=== PATIENT | female | born 1980 | race African-American/Black ===

== ENCOUNTER 2019-04-05 07:50 | Inpatient (IN) | payer OTHER ==
[2019-04-05 08:48] VITALS: BMI 14.6
[2019-04-05] MEDS ORDERED: CITRIC ACID/SODIUM CITRATE 30 ML UNIT-DOSE CUP PO ONE (10:11)
--- NOTE | 2019-04-05 10:15 | HP ---
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: Alzheimer's, CVA, Dementia, Migraine, Multiple Sclerosis, Peripheral Neuropathy, Parkinson's, Seizure, Syncope, TIA, Vertigo, Other Cardiovascular: No: AFIB, Aneurysm, Aortic Insufficiency, Aortic Stenosis, CAD, CHF, Deep Vein Thrombosis, HTN, Hyperlipdemia, IN, Mitral Insufficiency, Mitral Stenosis, Murmur, Pulmonary Hypertension, Other Pulmonary: No: Asthma, Bronchitis, Cancer, COPD, O2 Dependent, Pneumonia, Previously Intubated, Pulmonary Embolus, Pulmonary Fibrosis, Sleep Apnea, Other Gastrointestinal: No: Ascites, Cancer, Constipation, Crohn's Disease, Diverticulitis, Diverticulosis, Esophageal Varices, Gastritis, GERD, GI Bleed, Hemorrhoids, Hiatal Hernia, Inflamatory Bowel Disease, Irritable Bowel Disease, Pancreatitis, Peptic Ulcer Disease, Ulcerative Colitis, Other Hepatobiliary: No: Cirrhosis, Cholelithiasis, Cholecystitis, Choledocholithiasis , Hepatitis A, Hepatitis B, Hepatitis C, Other Renal/: No: Renal Failure, Renal Inusuff, BPH, Cancer, Hematuria, Hemodialysis , Neurogenic Bladder, Renal Calculi, UTI, Other Reproductive: No: Ectopic , Endometriosis, Fibroids, PID, Polycystic Ovary Syndrome, Postmenopausal, Other ...: 3 ...Para: 2 ...Term: 2 ...: 0 ...Spon : 0 ...Induced : 0 ...Multiple Gestation: 0 ...LMP: 06/14/18 ... Weeks Gestation by Dates: 39 ...EDC by Dates: 04/11/19 ...EDC by Sono: 04/05/19 Heme/Onc: No: Anemia, B12 Deficiency, Bleeding Disorder, Cancer, Current Chemotherapy, Current Radiation Therapy, Hemochromatosis, Hypercoaguable State, Myeloproliferative Synd, Sickle Cell Disease, Sickle Cell Trait, Thrombocytopenia, Other Infectious Disease: No: AIDS, C-Diff, Herpes Zoster, HIV, MRSA, STD's, Tuberculosis, VREF, Other Psych: No: Addictions, Anxiety, Bipolar, Depression, Panic, Psychosis, Schizophrenia, Other Musculoskeletal: No: Bursitis, Chronic low back pain, Hemiparesis, Hemiplegia, Osteoarthritis, Paraplegia, Other Rheumatology: No: Fibromyalgia, Gout, Lupus, Rheumatoid Arthritis, Sarcoidosis, Vasculitis, Other ENT: No: Allergic Rhinitis, Sinusitis, Other Endocrine: No: [place]'s Disease, [place]'s Disease, Diabetes Insipidus, Diabetes Mellitus, Hyperparathyroidism, Hyperthyroidism, Hypothyroidism, Osteopenia, SIADH, Other Dermatology: No: Basal Cell, Cellulitis, Eczema, Melanoma, Psoriasis, Squamous Cell, Other - Past Surgical History Past Surgical History: No: None, AAA Repair, AICD, Amputation, Appendectomy, Arthrosocopy, AV Fistula/Graft, Bariatric Surgery, Breast Biopsy, Bypass, CABG, Carotid Endarterectomy, Cataract Removal, Cholecystectomy, Colectomy, Colonoscopy, Colostomy, Craniotomy, , Cystectomy, Hernia Repair, Hysterectomy, Ileal Conduit, Ileosotomy, Joint Replacement, Kidney Transplant, Laminectomy, Liver Transplant, Mastectomy, Nephrectomy, Oopherectomy, Orchiectomy, Permanent Pacemaker, Prostatectomy, Splenectomy, Stent, Thoracotomy , TURP, Tonsillectomy, Tubal Ligation, Upper Endoscopy, Valve Replacement, Vasectomy, Vein Stripping/Ligation Hx Myomectomy: No Hx Transabdominal Cerclage: No - Advance Directives Advance Directives: Yes: Living Will - Smoking History Smoking history: Never smoked Have you smoked in the past 12 months: No - Alcohol/Substance Use Hx Alcohol Use: No History of Substance Use: reports: None - Social History Usual Living Arrangement: Yes: With Spouse Do you think of yourself as: Straight/Heterosexual ADL: Independent History of Recent Travel: No Home Medications - Allergies Allergies/Adverse Reactions: Allergies Allergy/AdvReac Type Severity Reaction Status Date / Time No Known Allergies Allergy Verified 04/05/19 08:31 - Home Medications Home Medications: Ambulatory Orders Albuterol Sulfate [Proventil HFA Inhaler -] 1 - 2 inh PO PRN 04/05/19 Prenat 115/Iron Fum/Folic/Dss [ 19 Tablet] 1 each PO DAILY 04/05/19 Family Medical History Family History: Denies Review of Systems - Review of Systems Constitutional: reports: No Symptoms Eyes: reports: No Symptoms HENT: reports: No Symptoms Neck: reports: No Symptoms Cardiovascular: reports: No Symptoms Respiratory: reports: No Symptoms Gastrointestinal: reports: No Symptoms Genitourinary: reports: No Symptoms Breasts: reports: No Symptoms Reported Musculoskeletal: reports: No Symptoms Integumentary: reports: No Symptoms Neurological: reports: No Symptoms Endocrine: reports: No Symptoms Hematology/Lymphatic: reports: No Symptoms Psychiatric: reports: No Symptoms Physical Exam - Maternity Vital Signs: Vital Signs Temperature 98.7 F 04/05/19 08:34 Pulse Rate 103 H 04/05/19 08:34 Respiratory Rate 20 04/05/19 08:34 Blood Pressure 109/61 04/05/19 08:34 O2 Sat by Pulse Oximetry (%) Constitutional: Yes: Well Nourished, No Distress, Calm Eyes: Yes: WNL, Conjunctiva Clear, EOM Intact HENT: Yes: WNL, Atraumatic, Normocephalic Neck: Yes: WNL, Supple, Trachea Midline Cardiovascular: Yes: WNL, Regular Rate and Rhythm Lungs: Clear to auscultation Breast(s): Yes: WNL - Abdominal Exam/OB Fundal Height: 40 Number of Fetuses: Single Presentation: Vertex Contractions: Yes Regularity: Irregular Intensity: Mild Monitor Mode: External Heart Rate Location: [facility] Category: I Accelerations: Uniform Decelerations: None - Vaginal Exam/OB Vaginal Bleediing: No Speculum Exam: No Amniotic Membrane Status: Intact Presentation: Vertex/Position Station: -3 - Physical Exam Musculoskeletal: Yes: WNL Extremities: Yes: WNL Edema: Yes Edema: LUE: 1+, RUE: 1+, LLE: 1+, RLE: 1+ Integumentary: Yes: WNL Deep Tendon Reflex Grade: Normal +2 ...Motor Strength: WNL Psychiatric: Yes: WNL, Alert, Oriented Assessment/Plan for repeat lt c s
[2019-04-05] MEDS ORDERED: morphine SULFATE/PF 0.5 MG/ML (2cc Syringe - QUVA) ONE (10:20)
[2019-04-05] MEDS ORDERED: ELECTROLYTE-148 SOLN 500 ML IV ONE (10:20)
[2019-04-05] MEDS ORDERED: ePHEDrine SULFATE 50 MG/1 ML AMPULE ONE (10:21)
[2019-04-05] MEDS ORDERED: ELECTROLYTE-148 SOLN 1,000 ML IV SCH (10:50)
[2019-04-05] MEDS ORDERED: OXYTOCIN 20 UNITS in 0.9% NS 20 UNIT/1,000 ML INFUS.BAG IV ONE (11:54)
[2019-04-05] MEDS ORDERED: METHYLERGONOVINE MALEATE 0.2 MG/1 ML AMP IM PRN (12:21)
[2019-04-05] MEDS ORDERED: SENNOSIDES/DOCUSATE COMBO (SENNA PLUS) TABLET (UD) PO PRN (12:21)
[2019-04-05] MEDS ORDERED: oxyCODONE HCL 5 MG TABLET PO PRN (12:21)
[2019-04-05] MEDS ORDERED: ONDANSETRON 4 MG/2 ML VIAL IVPUSH PRN (12:25)
[2019-04-05] MEDS ORDERED: morphine SULFATE/PF 0.5 MG/ML (2cc Syringe - QUVA) SPIN ONE (12:25)
--- NOTE | 2019-04-05 12:28 | OP ---
Operative Note - Note: Operative Date: 04/05/19 Pre-Operative Diagnosis: repeat lt c s Operation: repeat lt c s Findings: polyhydramnious , macrosomia Post-Operative Diagnosis: Same as Pre-op Surgeon: Dudley Echevarria Lie Detector Operator: Иван Saunders Anesthesia: Spinal Estimated Blood Loss (mls): 1,200 Operative Report Dictated: Yes
[2019-04-05] MEDS: IBUPROFEN 800 MG/8 ML IJ IVPB PRN (22:02)
[2019-04-06] MEDS: OXYTOCIN 20 UNITS in 0.9% NS 20 UNIT/1,000 ML INFUS.BAG IV SCH ×2 (02:04→02:06)
[2019-04-06] MEDS: IBUPROFEN 800 MG/8 ML IJ IVPB PRN ×2 (06:12→13:39)
--- NOTE | 2019-04-06 07:03 | OP ---
DATE OF OPERATION: 04/05/2019 PREOPERATIVE DIAGNOSIS: Repeat low transverse section. POSTOPERATIVE DIAGNOSIS: Repeat low transverse section. PROCEDURE PERFORMED: Repeat low transverse section. SURGEON: Dudley Echevarria MD CREAM HAULER: TD Penn ANESTHESIA: Spinal. ANESTHESIOLOGIST: Malaika Rojas M.D. INDICATIONS: A 39-year-old female patient, 39 weeks' , is not diabetic. She is morbidly obese, with BMI of 44.2, and was taken to the OR repeat low transverse section. The patient had a previous low transverse section. Currently 39 weeks . DESCRIPTION OF PROCEDURE: The patient was placed on the operating table in the supine position after spinal anesthesia was obtained. The patient's abdomen and pelvis were prepped and draped in the usual sterile manner. Following the same Pfannenstiel incision, an incision was made through the skin and subcutaneous tissue until the fascia was nicked in the midline. The fascial incision was extended bilaterally. The intraperitoneal cavity was entered. No bladder flap was created. The low transverse segment of the uterus was entered. The baby was delivered from LOP position. There was no cord around the neck. The baby is macrosomic and difficult to remove outside the uterine cavity, but we got it out. The uterus was a little bit lethargic, so Pitocin was given and Methergine was given for atonic uterus, but the fundus of the uterus was firm after the Methergine was given. The uterus was closed in a single layer, good hemostasis, no complications. Both ovaries, fallopian tubes and uterus within normal limits. Peritoneum was closed. Fascia was closed. Skin was closed with a subcuticular suture. Both gutters were clean. Draining clear urine. Blood loss about 1200 mL. Transferred to the recovery room in stable condition. MD STEPHANIE CARVAJAL/[id number]
[2019-04-06 09:00] LABS: BASO % 0.7 % (0-2.0); EOS % 1.4 % (0-4.5); HEMATOCRIT 30.9 % (32.4-45.2); HEMOGLOBIN 10.5 GM/dL (10.7-15.3); LYMPH % 19.2 % (8-40); MEAN CELL VOLUME 88.4 fl (80-96); MEAN PLT VOLUME 9.6 fl (7.5-11.1); MONO % 8.9 % (3.8-10.2); NEUT % 69.8 % (42.8-82.8); PLATELET COUNT 158 K/MM3 (134-434); RDW 14.2 % (11.6-15.6); WHITE BLOOD COUNT 10.6 K/mm3 (4.0-10.0)
[2019-04-06] MEDS: ENOXAPARIN NA (PORCINE) 40 MG/0.4 ML DISP.SYRIN SQ SCH (09:00)
--- NOTE | 2019-04-06 10:01 | PN ---
Progress Note (short form) - Note Progress Note: Post op day#1.S/P C Section under spinal anesthesia with duramorph uneventful.Patient stable and has little pain for which she is on medication.No any anesthesia related problem.Patient DC from the anesthesia care.
[2019-04-06] MEDS ORDERED: BISACODYL 10 MG SUPP.RECT RC PRN (12:22)
--- NOTE | 2019-04-06 17:16 | PN ---
Post Progress Note Post Day: 1 Type of Delivery: Repeat C/S Vital Signs: Vital Signs Temperature 98.5 F 04/06/19 10:00 Pulse Rate 95 H 04/06/19 10:00 Respiratory Rate 20 04/06/19 15:00 Blood Pressure 121/56 L 04/06/19 10:00 O2 Sat by Pulse Oximetry (%) 98 04/05/19 13:30 Breast Exam: Yes: Soft Uterus: Yes: Fundus Firm, Fundus below umbilicus Incision: Yes: Dressing dry and intact, Sutures intact Abdomen/GI: Yes: Abdomen soft, Passing flatus, Tolerating PO Lochia: Yes: Serosa Lochia, amount: Small Extremities: Yes: Calves non-tender Perineum: Yes: Intact Activity: Ambulating - Labs Labs: CBC WBC 10.6 K/mm3 (4.0-10.0) H 04/06/19 08:42 RBC 3.50 M/mm3 (3.60-5.2) L 04/06/19 08:42 Hgb 10.5 GM/dL (10.7-15.3) L 04/06/19 08:42 Hct 30.9 % (32.4-45.2) L 04/06/19 08:42 MCV 88.4 fl (80-96) 04/06/19 08:42 MCH 30.0 pg (25.7-33.7) 04/06/19 08:42 MCHC 34.0 g/dl (32.0-36.0) 04/06/19 08:42 RDW 14.2 % (11.6-15.6) 04/06/19 08:42 Plt Count 158 K/MM3 (134-434) 04/06/19 08:42 MPV 9.6 fl (7.5-11.1) 04/06/19 08:42 Absolute Neuts (auto) 7.4 K/mm3 (1.5-8.0) 04/06/19 08:42 Neutrophils % 69.8 % (42.8-82.8) 04/06/19 08:42 Lymphocytes % 19.2 % (8-40) D 04/06/19 08:42 Monocytes % 8.9 % (3.8-10.2) 04/06/19 08:42 Eosinophils % 1.4 % (0-4.5) 04/06/19 08:42 Basophils % 0.7 % (0-2.0) 04/06/19 08:42 Nucleated RBC % 0 % (0-0) 04/06/19 08:42 Assessment/Plan doing well, oob as much as possible
[2019-04-06] MEDS: SIMETHICONE 80 MG TAB.CHEW (FP) PO PRN (18:23)
[2019-04-06] MEDS: oxyCODONE HCL 5 MG TABLET PO PRN (19:23)
[2019-04-06] MEDS: IBUPROFEN 600 MG TABLET (FP) PO PRN (19:24)
[2019-04-07] MEDS: SIMETHICONE 80 MG TAB.CHEW (FP) PO PRN ×4 (03:48→20:22)
[2019-04-07] MEDS: IBUPROFEN 600 MG TABLET (FP) PO PRN ×4 (03:48→20:22)
[2019-04-07] MEDS: oxyCODONE HCL 5 MG TABLET PO PRN ×2 (03:48→09:21)
[2019-04-07] MEDS: ENOXAPARIN NA (PORCINE) 40 MG/0.4 ML DISP.SYRIN SQ SCH (09:20)
[2019-04-07] MEDS: ACETAMINOPHEN 325 MG TABLET (FP) PO PRN ×2 (13:27→20:22)
--- NOTE | 2019-04-08 00:36 | PN ---
Post Progress Note Post Day: 2 Type of Delivery: Repeat C/S Vital Signs: Vital Signs Temperature 98.7 F 04/07/19 21:51 Pulse Rate 106 H 04/07/19 21:51 Respiratory Rate 18 04/07/19 21:51 Blood Pressure 117/71 04/07/19 21:51 O2 Sat by Pulse Oximetry (%) 98 04/05/19 13:30 Breast Exam: Yes: Soft Uterus: Yes: Fundus Firm, Fundus below umbilicus Incision: Yes: Dressing dry and intact, Sutures intact Abdomen/GI: Yes: Abdomen soft, Passing flatus, Tolerating PO Lochia: Yes: Serosa Lochia, amount: Small Extremities: Yes: Calves non-tender Perineum: Yes: Intact Activity: Ambulating - Labs Labs: CBC WBC 10.6 K/mm3 (4.0-10.0) H 04/06/19 08:42 RBC 3.50 M/mm3 (3.60-5.2) L 04/06/19 08:42 Hgb 10.5 GM/dL (10.7-15.3) L 04/06/19 08:42 Hct 30.9 % (32.4-45.2) L 04/06/19 08:42 MCV 88.4 fl (80-96) 04/06/19 08:42 MCH 30.0 pg (25.7-33.7) 04/06/19 08:42 MCHC 34.0 g/dl (32.0-36.0) 04/06/19 08:42 RDW 14.2 % (11.6-15.6) 04/06/19 08:42 Plt Count 158 K/MM3 (134-434) 04/06/19 08:42 MPV 9.6 fl (7.5-11.1) 04/06/19 08:42 Absolute Neuts (auto) 7.4 K/mm3 (1.5-8.0) 04/06/19 08:42 Neutrophils % 69.8 % (42.8-82.8) 04/06/19 08:42 Lymphocytes % 19.2 % (8-40) D 04/06/19 08:42 Monocytes % 8.9 % (3.8-10.2) 04/06/19 08:42 Eosinophils % 1.4 % (0-4.5) 04/06/19 08:42 Basophils % 0.7 % (0-2.0) 04/06/19 08:42 Nucleated RBC % 0 % (0-0) 04/06/19 08:42 Assessment/Plan this is retro note for day 2 , will dc pt home tomorrow
--- NOTE | 2019-04-08 00:38 | DS ---
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 DAIRY Vital Signs: Vital Signs Temperature 98.7 F 04/07/19 21:51 Pulse Rate 106 H 04/07/19 21:51 Respiratory Rate 18 04/07/19 21:51 Blood Pressure 117/71 04/07/19 21:51 O2 Sat by Pulse Oximetry (%) 98 04/05/19 13:30 Constitutional: Yes: Well Nourished, No Distress, Calm Eyes: Yes: WNL, Conjunctiva Clear, EOM Intact HENT: Yes: WNL, Atraumatic, Normocephalic Neck: Yes: WNL, Supple, Trachea Midline Cardiovascular: Yes: WNL, Regular Rate and Rhythm Respiratory: Yes: WNL, Regular, CTA Bilaterally Gastrointestinal: Yes: WNL, Normal Bowel Sounds, Soft ...Rectal Exam: Yes: WNL Renal/: Yes: WNL Pelvis: Yes: WNL External Genitalia: Yes: Normal Internal Exam Deferred: No Vaginal Exam: Yes: Normal Cervix: Yes: Normal Uterus: Yes: Normal Adnexa: Normal: Bilateral ....Post : Yes: Uterus firm, Uterus non-tender Breast(s): Yes: WNL Musculoskeletal: Yes: WNL Extremities: Yes: WNL Edema: Yes Edema: LUE: 1+, RUE: 1+, LLE: 1+, RLE: 1+ Integumentary: Yes: WNL Wound/Incision: Yes: Clean/Dry, Well Approximated Neurological: Yes: WNL, Alert, Oriented ...Motor Strength: WNL Psychiatric: Yes: WNL, Alert, Oriented Labs: CBC, BMP 04/06/19 08:42 Delivery - Delivery Section: Repeat Type of Anesthesia: Spinal Episiotomy/Laceration: None EBL (cc): 1,200 Delivery, Single - Stages of Labor Date of Delivery: 04/05/19 Time of Delivery: 11:12 Time Placenta Delivered: 11:13 - Condition of Quantitative Software Engineer/Remote Sensing Advisor Present: Yes Name: Blaine Tapia Infant Gender: Male Weight: 4.423 kg Position: Left, OA Total Hours ROM (Hrs/Mins): 0hrs 2 min - 1 Minute Total Score: 9 5 Minutes Total Score: 9 - Feeding Plan Initial Plan: Elected not to breastfeed exclusively throughout hospitalization Discharge Summary Problems reviewed: Yes Reason For Visit: C SECTION Procedures: Principal: repeat lt c s Condition: Stable - Instructions Diet, Activity, Other Instructions: regular Disposition: HOME - Home Medications Comprehensive Discharge Medication List: Ambulatory Orders Albuterol Sulfate [Proventil HFA Inhaler -] 1 - 2 inh PO PRN 04/05/19 Prenat 115/Iron Fum/Folic/Dss [ 19 Tablet] 1 each PO DAILY 04/05/19 Prescription Drug Monitoring Program (I-STOP) results: I-STOP reviewed and no issues identified
[2019-04-08 08:10] LABS: BASO % 0.8 % (0-2.0); EOS % 2.6 % (0-4.5); HEMATOCRIT 26.9 % (32.4-45.2); LYMPH % 34.6 % (8-40); MCH 29.8 pg (25.7-33.7); MCHC 33.6 g/dl (32.0-36.0); MEAN CELL VOLUME 88.8 fl (80-96); MEAN PLT VOLUME 9.8 fl (7.5-11.1); MONO % 10.3 % (3.8-10.2); NEUT % 51.7 % (42.8-82.8); PLATELET COUNT 167 K/MM3 (134-434); RBC 3.03 M/mm3 (3.60-5.2); RDW 14.7 % (11.6-15.6); WHITE BLOOD COUNT 5.2 K/mm3 (4.0-10.0)
[2019-04-08] MEDS: ACETAMINOPHEN 325 MG TABLET (FP) PO PRN (09:06)
[2019-04-08] MEDS: IBUPROFEN 600 MG TABLET (FP) PO PRN (09:07)
[2019-04-08] MEDS: ENOXAPARIN NA (PORCINE) 40 MG/0.4 ML DISP.SYRIN SQ SCH (09:07)
[2019-04-08] MEDS: SIMETHICONE 80 MG TAB.CHEW (FP) PO PRN (09:08)
[2019-04-08 12:22] VITALS: BP 125/69; PULSE 96; TEMP 99.1
--- NOTE | 2019-04-08 13:00 | PN ---
Post Progress Note Post Day: 3 Type of Delivery: Repeat C/S Vital Signs: Vital Signs Temperature 99.1 F 04/08/19 10:00 Pulse Rate 96 H 04/08/19 10:00 Respiratory Rate 20 04/08/19 10:00 Blood Pressure 125/69 04/08/19 10:00 O2 Sat by Pulse Oximetry (%) 98 04/05/19 13:30 Breast Exam: Yes: Soft Uterus: Yes: Fundus Firm, Fundus below umbilicus Incision: Yes: Dressing dry and intact, Sutures intact Abdomen/GI: Yes: Abdomen soft, Passing flatus, Tolerating PO Lochia: Yes: Serosa Lochia, amount: Small Extremities: Yes: Calves non-tender Perineum: Yes: Intact Activity: Ambulating - Labs Labs: CBC WBC 5.2 K/mm3 (4.0-10.0) 04/08/19 07:23 RBC 3.03 M/mm3 (3.60-5.2) L 04/08/19 07:23 Hgb 9.0 GM/dL (10.7-15.3) L 04/08/19 07:23 Hct 26.9 % (32.4-45.2) L 04/08/19 07:23 MCV 88.8 fl (80-96) 04/08/19 07:23 MCH 29.8 pg (25.7-33.7) 04/08/19 07:23 MCHC 33.6 g/dl (32.0-36.0) 04/08/19 07:23 RDW 14.7 % (11.6-15.6) 04/08/19 07:23 Plt Count 167 K/MM3 (134-434) 04/08/19 07:23 MPV 9.8 fl (7.5-11.1) 04/08/19 07:23 Absolute Neuts (auto) 2.7 K/mm3 (1.5-8.0) 04/08/19 07:23 Neutrophils % 51.7 % (42.8-82.8) D 04/08/19 07:23 Lymphocytes % 34.6 % (8-40) D 04/08/19 07:23 Monocytes % 10.3 % (3.8-10.2) H 04/08/19 07:23 Eosinophils % 2.6 % (0-4.5) D 04/08/19 07:23 Basophils % 0.8 % (0-2.0) 04/08/19 07:23 Nucleated RBC % 0 % (0-0) 04/08/19 07:23 Assessment/Plan dc pt home today
--- NOTE | 2019-04-13 17:51 | PATH ---
Surgical Pathology Report Patient Name: DANA SIMON [facility]. Rec. 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 Electronically Signed Torrie Christie M.D. Gross Description The specimen is received fresh labeled placenta and is a 719 gram, 17.5 x 17.0 x 2.7 cm. placenta with attached membranes and umbilical cord. The attached membranes are de la torre, translucent with focal opacities and insert marginally. The umbilical cord measures 34 cm. in length and averages 1.2 cm. in diameter. The cord inserts eccentrically, 4 cm. to the nearest margin. No true knots or strictures are identified. Cut surface of the umbilical cord reveals 3 vessels. The surface is emerson blue with moderate fibrin deposition and appropriate caliber vessels. The maternal surface is red-brown with focal defects. Sectioning reveals red-brown, spongy parenchyma. No lesions are identified. Software Testing Specialist sections are submitted in three cassettes as follows: 1- membrane rolls and umbilical cord; 2-3- full thickness sections of placenta. /04/11/2019 [facility]04/11/2019
== END 2019-04-08 13:40 | disposition home or self-care (01) | DRG 788 ==
LOC: JLDR 07:50 → J3W 13:58
PROVIDERS: ADMIT Obstetrics & Gynecology; ATTEND Obstetrics & Gynecology
PROC: 10D00Z1 Extraction of Products of Conception, Low, Open Approach (ICD-10-PCS; principal; 2019-04-05)
DX: O34.211 Maternal care for low transverse scar from previous cesarean delivery (principal); O40.3XX0 Polyhydramnios, third trimester, not applicable or unspecified; O36.63X0 Maternal care for excessive fetal growth, third trimester, not applicable or unspecified; O99.214 Obesity complicating childbirth; E66.01 Morbid (severe) obesity due to excess calories; Z3A.39 39 weeks gestation of pregnancy; Z37.0 Single live birth
CPT/HCPCS: 36415; 85025; 88307-TC